=== PATIENT | female | born 1965 | race Caucasian/White ===

== ENCOUNTER 2018-09-30 08:29 | Emergency (ER) | payer BC ==
--- NOTE | 2018-09-30 08:44 | Emergency Department Record ---
History of Present Illness - General Chief complaint: Eye Problem Stated complaint: SWOLLEN EYE Time Seen by Provider: 09/30/18 08:41 Source: Patient Mode of Arrival: Ambulatory Limitations: No limitations - History of Present Illness Initial comments: 53 yo female presents with swelling around her eye after a dental procedure with Dr Layton in [place]. No fever. No vision changes. She reports the swelling occurred immediately during a root canal yesterday. Ultimately the dentist decided to just pull the tooth. She was started on Bactrim. She has been icing the area since then with some improvement today compared to yesterday but it is not gone. No vision changes. She denies fever. She can move her eye in all directions without pain or double vision. No neck pain or swelling. No cough, chest pain, or discomfort. No pain in the neck. No back pain. chief complaint: Other (Swelling around the eye after a dental procedure) -: Days(s) (1) Onset Description: Sudden (Onset during the procedure) Place: Other (Dental procedure) If Injury: None Severity: Moderate If Pain, Quality: Aching Consistency: Constant Context: Other Associated Symptoms: None Treatments Prior to Arrival: None - Related Data Home Medications Medication Instructions Recorded Confirmed Last Taken Methylprednisolone [Medrol Dose 4 mg PO ASDIR 09/30/18 09/30/18 09/29/18 Pack] Sulfamethoxazole/Trimethoprim 1 tab PO BID 09/30/18 09/30/18 09/30/18 [Bactrim Ds] Previous Rx's Medication Instructions Recorded Clindamycin HCl 300 mg PO QID #28 capsule 09/30/18 Allergies Allergy/AdvReac Type Severity Reaction Status Date / Time Penicillins Allergy RASH Verified 09/30/18 08:49 Review of Systems Constitutional: Denies: Chills, Fever, Weakness Eyes: Reports: Eye pain, Other. Denies: Eye discharge, Photophobia, Vision change ENT: Reports: Dental pain. Denies: Congestion, Ear pain, Epistaxis, Hearing loss, Throat pain Respiratory: Denies: Cough, Dyspnea, Hemoptysis, Stridor, Wheezes Cardiovascular: Denies: Chest pain, Dyspnea on exertion, Palpitations, Syncope Endocrine: Denies: Fatigue Gastrointestinal: Denies: Abdominal pain, Diarrhea, Nausea, Vomiting Genitourinary: Denies: Dysuria, Urgency Musculoskeletal: Denies: Arthralgia, Back pain, Myalgia Skin: Denies: Bruising, Change in color, Rash Neurological: Denies: Headache Psychiatric: Denies: Anxiety Hematological/Lymphatic: Denies: Easy bleeding, Easy bruising Physical Exam - General General Appearance: Alert, Oriented x3, Cooperative, No acute distress Limitations: No limitations - Head Head exam: Atraumatic, Normal inspection Image of Face/Head: 1 - mild facial swelling, mild lid swelling, no abnormal warmth. The lids easily and fully open and close - Eye Eye exam: PERRL, EOMI, Periorbital swelling (Very mild lid swelling, no abnormal warmth, palpable mild subcutaneous crepitus), Periorbital tenderness. negative: Normal appearance, Conjunctival injection, Nystagmus, Scleral icterus Pupils: Normal accommodation - ENT ENT exam: Mucous membranes moist, Normal orophraynx, TM's normal bilaterally. negative: Mucous membranes dry Ear exam: Normal external inspection Nasal Exam: Normal inspection Mouth exam: Normal external inspection Teeth exam: Normal inspection, Dental tenderness # (#4 extraction site appears clean, no drainage or bleeding, no swelling) Throat exam: Normal inspection. negative: Tonsillar erythema, Tonsillomegaly, Tonsillar exudate, R peritonsillar mass, L peritonsillar mass - Neck Neck exam: Normal inspection, Full ROM, Other (No throat swelling, some palpable right submandibular subcutaneous crepitus). negative: Lymphadenopathy , Tenderness - Respiratory Respiratory exam: Normal lung sounds bilaterally - Cardiovascular Cardiovascular Exam: Regular rate, Normal rhythm, Normal heart sounds - GI/Abdominal GI/Abdominal exam: Soft. negative: Tenderness - Rectal Rectal exam: Deferred - exam: Deferred - Extremities Extremities exam: Normal inspection. negative: Tenderness - Neurological Neurological exam: Alert, CN II-XII intact, Oriented X3 - Psychiatric Psychiatric exam: Normal affect, Normal mood - Skin Skin exam: Dry, Intact, Normal color, Warm Course - Reevaluation(s) Reevaluation #1: 09/30/18 10:[address] scan demonstrated I TRACY Son of ENT at [facility]. We discussed the physical examination, the CT scan was discussed. He agrees with antibiotics. Since she is not having any signs of infection or air way symptoms no indication for admission. I TRACY Layton DDS. We discussed the procedure, CT, physical findings. The patient has follow up in 24 hours with him. The patient is doing very well. She has no signs of fever, infection, cough, chest pain, sore throat, trouble with phonation, swallowing or any other signs We discussed at length the signs and symptoms that she should seek immediate medical attention. She has reliable close follow up with her dentist. Rx for Clindamycin provided. She was instructed to stop the Bactrim. Disposition Disposition: Discharge Clinical Impression: Subcutaneous crepitus H/O tooth extraction Qualifiers: Tooth loss class: unspecified tooth loss Qualified Code(s): K08.409 - Partial loss of teeth, unspecified cause, unspecified class Disposition: Home, Self-Care Condition: (1) Good Additional Instructions: Follow up as scheduled with your dentist Return to the ER for a recheck if worse, any fever, swallowing pain, chest pain , cough, or any new concerns or questions Take the prescriptions provided as directed Review this ER visit and the tests performed with your dentist Prescriptions: Clindamycin HCl 300 mg PO QID #28 capsule Forms: Patient Portal Access Time of Disposition: 10:58 Quality - Quality Measures Quality Measures: N/A - Blood Pressure Screening Does Patient Have Any of the Following: No Blood Pressure Classification: Normal BP Reading Systolic Measurement: 114 Diastolic Measurement: 51 Screening for High Blood Pressure: < Normal BP, F/U Not Required > [G8783]
[2018-09-30] MEDS ORDERED: CLINDAMYCIN 600MG/50ML PREMIX 600 MG/50 ML BAG IVPB ONE (08:57)
--- NOTE | 2018-10-02 10:54 | CT SCAN REPORT ---
EXAM: CT OF THE FACIAL BONES WITH CONTRAST HISTORY: SUDDEN ONSET OF RIGHT FACIAL SWELLING YESTERDAY DURING RIGHT UPPER MOLAR ROOT CANAL PROCEDURE. SLIGHT IMPROVEMENT IN SWELLING AND RIGHT PRESSURE FEELING. TECHNIQUE: Following the intravenous administration of 100 ml of Omnipaque 300 , helical CT examination of the facial bones was performed. FINDINGS: There are changes of relatively recent extraction of the right posterior maxillary pre-molar versus anterior right maxillary pre-molar. Small amounts of gas are noted within the socket. No suspicious osseous fracture is seen nor solid/cystic mass. There is, however, extensive subcutaneous emphysema involving the right orbit, bilateral face, right greater than left and extending into the upper neck. The etiology of this is uncertain. There are chronic inflammatory changes within the right maxillary sinus. Post surgical changes are noted within the medial wall of the right maxillary sinus. Minor mucosal thickening scattered in a few paranasal sinuses. Bilateral talha bullosa. Mild leftward deviation of the nasal septum. Other than subcutaneous emphysema within the right orbit, no suspicious orbital abnormality is seen. No evidence of contrast extravasation. The parotid glands and submandibular glands are symmetric and normal in appearance. There is mild atherosclerosis of the carotid bifurcations without evidence of high grade stenosis. IMPRESSION: 1. FINDINGS SUGGESTING RELATIVELY RECENT RIGHT MAXILLARY TOOTH EXTRACTION. LARGE AMOUNT OF SUBCUTANEOUS EMPHYSEMA, DISCUSSED ABOVE. THE SOURCE OF THIS IS INDETERMINATE THOUGH COULD RELATE TO THE RECENT EXTRACTION. 2. CHRONIC INFLAMMATORY CHANGES WITHIN THE PARANASAL SINUSES MOST PRONOUNCED IN THE RIGHT MAXILLARY SINUS. JOB NUMBER: [id number] [facility]
== END 2018-09-30 11:38 | disposition home or self-care (01) ==
LOC: ER 08:29
DX: M26.69 Other specified disorders of temporomandibular joint (principal); H02.843 Edema of right eye, unspecified eyelid; K08.409 Partial loss of teeth, unspecified cause, unspecified class
CPT/HCPCS: 99284 ×2; 96365; 70487; Q9967

== ENCOUNTER 2018-11-23 20:52 | Emergency (ER) | payer BC ==
[2018-11-23] MEDS ORDERED: DOXYCYCLINE HYCLATE 100 MG CAPSULE PO ONE (21:11)
--- NOTE | 2018-11-23 21:18 | Emergency Department Record ---
History of Present Illness - General Stated Complaint: PUNCTURE WOUND FROM CAT Time Seen by Provider: 11/23/18 21:10 Source: Patient Mode of Arrival: Ambulatory Limitations: No limitations - History of Present Illness Initial Comments: The patient is here due to her cat clawing her L hand about 4 hours ago. She did sustain a very minor PW to the web space between the 1st and 2nd MC's. It did swell and bleed and now the swelling has resolved. The patient denies any numbness or tingling and her Td is UTD. The cat has had it's rabies shots. MD Complaint: Other Onset/Timin -: Hour(s) - Related Data Previous Rx's Medication Instructions Recorded Doxycycline Monohydrate [Mondoxyne 100 mg PO BID 7 Days #14 capsule 11/23/18 ] Allergies Allergy/AdvReac Type Severity Reaction Status Date / Time Penicillins Allergy RASH Verified 09/30/18 08:49 Review of Systems Constitutional: Denies: Chills, Fever Past Medical History - SOCIAL HISTORY Smoking Status: Light tobacco smoker (<10/day) Drug Use: None - RESPIRATORY Hx Respiratory Disorders: Yes Hx Asthma: Yes Hx Bronchitis: Yes - CARDIOVASCULAR Hx Cardio Disorders: No - NEURO Hx Neuro Disorders: No - GI Hx GI Disorders: No - Hx Genitourinary Disorders: Yes Hx UTI: Yes - ENDOCRINE Hx Endocrine Disorders: No - MUSCULOSKELETAL Hx Musculoskeletal Disorders: Yes - PSYCH Hx Psych Problems: No - HEMATOLOGY/ONCOLOGY Hx Hematology/Oncology Disorders: Yes Hx Blood Transfusions: Yes Hx Blood Transfusion Reaction: No Physical Exam - General General Appearance: Alert, Cooperative, No acute distress - Head Head exam: Atraumatic, Normocephalic - Eye Eye exam: Normal appearance - Extremities Extremities exam: negative: Normal inspection (There is a 2 mm PW to the dorsal hand between the 1st and 2nd MC bones. There is very minimal swelling and bruising present but the wound is already healed and not bleeding or draining. The L hand is NVI.) - Neurological Neurological exam: Alert. negative: Motor sensory deficit Course Vital Signs 11/23/18 21:09 Temperature 97.7 F Pulse Rate [ 72 Pulse Ox Probe] Respiratory 16 Rate Blood Pressure 133/67 [Right Arm] Pulse Ox 99 - Reevaluation(s) Reevaluation #1: I did discuss the options with the patient regarding the cat claw PW. It appears very clean at this time and not bleeding or draining. We will clean it with Hibiclens and start the patient on Doxycycline. She is to watch for signs of infection and return to the ER for any problems. 11/23/18 21:17 Disposition Disposition: Discharge Clinical Impression: Puncture wound of hand Qualifiers: Encounter type: initial encounter Foreign body presence: without foreign body Laterality: left Qualified Code(s): S61.432A - Puncture wound without foreign body of left hand, initial encounter Disposition: Home, Self-Care Condition: (2) Stable Instructions: Laceration (ED) Additional Instructions: Please take the doxycycline as directed and watch for signs of infection. Please see your family doctor for any problems and return to the ER for any signs of infection. Prescriptions: Doxycycline Monohydrate [Mondoxyne Nl] 100 mg PO BID 7 Days #14 capsule Time of Disposition: 21:40 Quality - Quality Measures Quality Measures: N/A - Blood Pressure Screening View Details: Yes Does Patient Have Any of the Following: No Blood Pressure Classification: Pre-Hypertensive BP Reading Systolic Measurement: 133 Diastolic Measurement: 67 Screening for High Blood Pressure: < Pre-Hypertensive BP, F/U Documented > [ G8950] Pre-Hypertensive Follow-up Interventions: Referral to alternative/primary care provider.
== END 2018-11-23 21:50 | disposition home or self-care (01) ==
LOC: ER 20:52
DX: S61.432A Puncture wound without foreign body of left hand, initial encounter (principal); W55.03XA Scratched by cat, initial encounter; F17.210 Nicotine dependence, cigarettes, uncomplicated
CPT/HCPCS: 99282

== ENCOUNTER 2019-06-19 06:57 | Day surgery (SDC) | payer BC ==
[2019-06-19] MEDS ORDERED: LIDOCAINE 2% MDV (20MG/ML) 20ML VIAL IV ONE (06:58)
[2019-06-19] MEDS ORDERED: PROPOFOL 10 MG/ML VIAL IV ONE (06:58)
--- NOTE | 2019-06-23 06:02 | Operative Note ---
DATE OF SURGERY: 06/19/2019 REQUFESTING PHYSICIAN: Song Klein M.D. SURGEON: Priscilla Rothman M.D. OPERATION: COLONOSCOPY. INDICATIONS: This is a 53-year-old female with average risk for colorectal cancer who presented for screening colonoscopy. POSTOPERATIVE DIAGNOSIS: Normal colon. ANESTHESIA: Sedation is per Anesthesia. Pulse oximetry was monitored throughout the procedure to maintain O2 saturation of 90% or greater. Supplemental oxygen was administered via nasal cannula. Cardiac and vital signs were monitored throughout the duration of the procedure, and they were stable. The procedure of colonoscopy, risks and alternatives of the procedure, including the risk of bleeding and perforation, among others, were explained to the patient who voiced understanding and agreed to have the procedure done. Physical examination was performed, and the patient was found stable for sedation. PROCEDURE: The patient was placed in the left lateral position. Sedation was initiated. A digital rectal exam was performed and without difficulty. The colonic mucosa was carefully examined upon introduction of the colonoscope. There were no lesions noted. The colonoscope was then withdrawn while carefully examining the colonic mucosal surfaces. No lesions were noted. In the rectum, retroflexion was performed and grade 1 internal hemorrhoids were noted. The colonoscope was then withdrawn and the procedure was terminated. The patient tolerated the procedure well without any immediate complications. She remained with stable vital signs and was transferred to the recovery room. RECOMMENDATIONS: 1. The patient should continue to be on a high-fiber diet. 2. The patient is to have a repeat colonoscopy for screening in 10 years. Thank you for allowing me to participate in the care of your patient. BEVERLEY
== END 2019-06-19 08:45 | disposition home or self-care (01) ==
LOC: HOP 06:57
PROVIDERS: ATTEND Internal Medicine Gastroenterology
DX: Z12.11 Encounter for screening for malignant neoplasm of colon (principal)